=== PATIENT | female | born 2000 | race Hispanic/Latino ===

== ENCOUNTER → 2024-07-30 | Day surgery (SDC) | payer OTHER ==
[~2024-07-30] MED LIST: BUSPIRONE HCL10 MG PO; EMGALITY S120 MG/1 M INJ; FENTANYL CITRATE/PF 100MCG/2 ML INJ ONE; LIDOCAINE HCL 2% LOCAL INJ 5 ML SDV VIAL INJ ONE; ONDANSETRON HCL INJ 2MG/ML 2ML 2 MG/ML VIAL ONE; PRISTIQ ER50 MG PO; PROBIOTIC1 EAC1 PO; PROPOFOL IV EMULSION 10 MG/ML 20 ML VIAL ONE
[2024-07-30] MEDS: LACTATED RINGER'S 1,000 ML ONE (14:58)
[2024-07-30 18:20] VITALS: BP 107/71; PULSE 98; RESP 17; TEMP 97.2; O2SAT 100
== END | disposition home or self-care (01) ==
LOC: OR 14:28
PROVIDERS: ATTEND Internal Medicine Gastroenterology
DX: K29.70 Gastritis, unspecified, without bleeding (principal); K31.89 Other diseases of stomach and duodenum; K20.90 Esophagitis, unspecified without bleeding; K44.9 Diaphragmatic hernia without obstruction or gangrene; K59.09 Other constipation; Z71.89 Other specified counseling; F41.9 Anxiety disorder, unspecified; F32.A Depression, unspecified; Z79.899 Other long term (current) drug therapy; Z68.24 Body mass index [BMI] 24.0-24.9, adult; Z71.3 Dietary counseling and surveillance
CPT/HCPCS: 43239; 81025; J2003; J2405; J2470; J2704; J3010; J7121

== ENCOUNTER 2024-08-07 16:11 | Emergency (ER) | payer OTHER ==
[~2024-08-07] VITALS: Ht 160 cm; Wt 62.1 kg
[2024-08-07 16:13] VITALS: TEMP 98.6
[2024-08-07] MEDS ORDERED: DIATRIZOATE MEGL/DIATRIZOA SOD 30 ML BTL PO ONE (16:35)
[2024-08-07] MEDS ORDERED: IOPAMIDOL 370 MG/ML 100 ML INFUS..BTL INJ ONE (16:35)
[2024-08-07] MEDS: SODIUM CHLORIDE 0.9% 1000ML 1,000 ML IV SCH (17:07)
[2024-08-07] MEDS: ONDANSETRON HCL INJ 2MG/ML 2ML 2 MG/ML VIAL IV STA (17:09)
[2024-08-07 17:21] VITALS: PULSE 79; RESP 18
[2024-08-07 17:28] LABS: BASOPHILS % 0.4 % (0.0-1.0); EOSINOPHILS # (AUTO) 0.2 (0.0-0.4); EOSINOPHILS % 3.6 % (0.0-6.0); HEMATOCRIT 35.9 % (34.2-44.1); HEMOGLOBIN 12.3 g/dL (12.0-16.0); LYMPHOCYTES # (AUTO) 1.2 (1.0-3.2); LYMPHOCYTES % 17.7 % (18.0-39.1); MEAN CORPUSCULAR HEMOGLOBIN 29.7 pg (28-32); MEAN CORPUSCULAR HGB CONC 34.3 g/dL (31-35); MEAN CORPUSCULAR VOLUME 86.7 fL (81-99); MONOCYTES # (AUTO) 0.6 (0.2-0.8); MONOCYTES % 8.2 % (4.4-11.3); NEUTROPHILS # (AUTO) 4.7 (2.1-6.9); PLATELET COUNT 271 x10e3/uL (140-360); RED BLOOD COUNT 4.14 x10e6/uL (3.6-5.1); RED CELL DISTRIBUTION WIDTH 11.5 % (11.7-14.4); WHITE BLOOD COUNT 6.73 x10e3/uL (4.8-10.8)
[2024-08-07 17:43] LABS: ALBUMIN 3.9 g/dL (3.5-5.0); ALBUMIN/GLOBULIN RATIO 1.2 (0.8-2.0); ANION GAP 12.5 mmol/L (8-16); BILIRUBIN,TOTAL 1.1 mg/dL (0.2-1.2); CALCIUM 8.2 mg/dL (8.4-10.2); CREATININE, SERUM 0.79 mg/dL (0.57-1.11); POTASSIUM 3.5 mmol/L (3.5-5.1); TOTAL PROTEIN 7.2 g/dL (6.5-8.1)
[2024-08-07 19:11] VITALS: BP 116/68; PULSE 72; RESP 19; TEMP 98.3; O2SAT 100
== END 2024-08-07 19:13 | disposition home or self-care (01) ==
LOC: ER 16:33
DX: R55 Syncope and collapse (principal); R11.2 Nausea with vomiting, unspecified; R10.9 Unspecified abdominal pain
CPT/HCPCS: 36415; 74177; 80053; 85025; 99284; J2405; J7030; Q9963; Q9967

== ENCOUNTER → 2024-08-07 | Outpatient (REF) | payer OTHER ==
[~2024-08-07] MED LIST changes: -FENTANYL CITRATE/PF 100MCG/2 ML INJ ONE; -LIDOCAINE HCL 2% LOCAL INJ 5 ML SDV VIAL INJ ONE; -ONDANSETRON HCL INJ 2MG/ML 2ML 2 MG/ML VIAL ONE; -PROPOFOL IV EMULSION 10 MG/ML 20 ML VIAL ONE
== END ==
LOC: CT 15:31
PROVIDERS: ATTEND Nurse Practitioner
DX: R10.84 Generalized abdominal pain (principal)
CPT/HCPCS: 81025

== ENCOUNTER → 2024-08-24 | Day surgery (SDC) | payer OTHER ==
[~2024-08-24] MED LIST changes: +FENTANYL CITRATE/PF 100MCG/2 ML INJ ONE; +GLYCOPYRROLATE INJ 0.2 MG/ML VIAL ONE; +HYOSCYAMINE SULFATE 0.5 MG/ML INJ ONE; +LACTATED RINGER'S 1,000 ML ONE; +LIDOCAINE HCL 2% LOCAL INJ 5 ML SDV VIAL INJ ONE; +MESALAMINE1000 MG RC; +PROPOFOL IV EMULSION 10 MG/ML 20 ML VIAL ONE; +PROPOFOL IV EMULSION 50 ML IV ONE
[2024-08-24 13:47] VITALS: BP 121/67; PULSE 87; RESP 16; O2SAT 99
[2024-08-24 14:02] LABS: CDIFF AG QUIK CHEK NEGATIVE (NEGATIVE); CDIFF TOX QUIK CHEK NEGATIVE (NEGATIVE)
[2024-08-25 08:56] LABS: C-REACTIVE PROTEIN <1 mg/L (0-10)
[2024-08-27 08:12] LABS: ENDOMYSIAL ANTIBODIES, IGA Negative (Negative)
[2024-08-27 18:22] LABS: IMMUNOGLOBULIN A 300 mg/dL (87-352); TISSUE TRANSGLUTAMINASE IGA AB <2 U/mL (0-3)
== END | disposition home or self-care (01) ==
LOC: OR 10:52
PROVIDERS: ATTEND Internal Medicine Gastroenterology
DX: K52.9 Noninfective gastroenteritis and colitis, unspecified (principal); K62.89 Other specified diseases of anus and rectum; K64.8 Other hemorrhoids; K29.70 Gastritis, unspecified, without bleeding; R89.9 Unspecified abnormal finding in specimens from other organs, systems and tissues; K44.9 Diaphragmatic hernia without obstruction or gangrene; F41.8 Other specified anxiety disorders; G43.909 Migraine, unspecified, not intractable, without status migrainosus; Z79.899 Other long term (current) drug therapy
CPT/HCPCS: 45380; 81025; 82784; 83516; 83630; 83993; 86140; 86256; 87045; 87177; 87324; 87328; 87449; J1980; J2003; J2704 ×2; J3010; J7121; 45378

== ENCOUNTER 2024-09-07 11:09 | Emergency (ER) | payer OTHER ==
[~2024-09-07] VITALS: Ht 162.6 cm; Wt 61.2 kg
[~2024-09-07 11:09] MED LIST changes: -FENTANYL CITRATE/PF 100MCG/2 ML INJ ONE; -GLYCOPYRROLATE INJ 0.2 MG/ML VIAL ONE; -HYOSCYAMINE SULFATE 0.5 MG/ML INJ ONE; -LACTATED RINGER'S 1,000 ML ONE; -LIDOCAINE HCL 2% LOCAL INJ 5 ML SDV VIAL INJ ONE; -MESALAMINE1000 MG RC; -PROPOFOL IV EMULSION 10 MG/ML 20 ML VIAL ONE; -PROPOFOL IV EMULSION 50 ML IV ONE
[2024-09-07 11:53] VITALS: PULSE 82; RESP 17; TEMP 98.7; O2SAT 100
[2024-09-07] MEDS ORDERED: MESALAMINE1000 MG RC (12:16)
[2024-09-07 12:35] LABS: HEMATOCRIT 34.8 % (34.2-44.1); HEMOGLOBIN 11.9 g/dL (12.0-16.0)
== END 2024-09-07 13:11 | disposition home or self-care (01) ==
LOC: ER 12:14
DX: K62.5 Hemorrhage of anus and rectum (principal); K64.8 Other hemorrhoids
CPT/HCPCS: 36415; 85014; 85018; 99282

== ENCOUNTER → 2025-02-23 | Day surgery (SDC) | payer OTHER ==
[~2025-02-23] MED LIST changes: +DICYCLOMINE HCL20 MG PO; +ESMOLOL HCL 100MG/10ML 10 MG/ML VIAL ONE; +FENTANYL CITRATE/PF 100MCG/2 ML INJ ONE; +HYOSCYAMINE SULFATE 0.5 MG/ML INJ ONE; +LIDOCAINE HCL 2% LOCAL INJ 5 ML SDV VIAL INJ ONE; +MESALAMINE1000 MG RC; +METOCLOPRAMIDE HCL 10 MG/2ML VIAL ONE; +MIDAZOLAM HCL 2 MG/2 ML VIAL ONE; +PROPOFOL IV EMULSION 10 MG/ML 20 ML VIAL ONE; +PROPOFOL IV EMULSION 50 ML IV ONE; +SUCRALFATE1 GM PO
[2025-02-23] MEDS: LACTATED RINGER'S 1,000 ML ONE (12:25)
[2025-02-23 14:38] VITALS: TEMP 97.4
[2025-02-23 15:20] VITALS: BP 125/80; PULSE 74; RESP 16; O2SAT 97
[2025-02-23 15:42] LABS: WBC,FECAL (FECAL LACTOFERRIN) NEGATIVE (NEGATIVE)
[2025-02-23 15:43] LABS: CDIFF AG QUIK CHEK NEGATIVE (NEGATIVE); CDIFF TOX QUIK CHEK NEGATIVE (NEGATIVE)
[2025-02-25 20:10] LABS: ENDOMYSIAL ANTIBODIES, IGA Negative (Negative)
[2025-02-25 21:25] LABS: TISSUE TRANSGLUTAMINASE IGA AB <2 U/mL (0-3)
== END | disposition home or self-care (01) ==
LOC: OR 11:28
PROVIDERS: ATTEND Internal Medicine Gastroenterology
DX: K52.9 Noninfective gastroenteritis and colitis, unspecified (principal); K62.89 Other specified diseases of anus and rectum; K64.8 Other hemorrhoids; K29.70 Gastritis, unspecified, without bleeding; K21.9 Gastro-esophageal reflux disease without esophagitis; F41.9 Anxiety disorder, unspecified; F32.A Depression, unspecified; G43.909 Migraine, unspecified, not intractable, without status migrainosus; Z79.899 Other long term (current) drug therapy
CPT/HCPCS: 43239; 45378; 45380; 81025; 82784; 83516; 83630; 83993; 86140; 86256; 87045; 87177; 87324; 87328; 87449; J1980; J2003; J2250; J2470; J2765